=== PATIENT | female | born 1965 | race Caucasian/White ===

== ENCOUNTER 2019-05-31 17:17 | Emergency (ER) | payer BC, OTHER ==
--- OUTSIDE RECORDS SUMMARY | 2019-05-31 17:24 | XMS REPORT | Continuity of Care Document ---
:1965 Author Organization [facility] Address [address], [place] [id number] Phone Care Team Providers Name Role Phone Allen YOUNG, Nghia Unavailable Unavailable Allergies, Adverse Reactions, Alerts Substance Reaction Status Cephalosporins hives (moderate) Active NITROFURANTOIN MACROCRYSTALLINE Active nitrofurantoin Active Penicillins Active Medications Medication Instructions Dosage Effective Dates Status Comments (start - stop) zolpidem 5 mg 1/2 to 1 PO QD as - Active Maximum Daily tablet needed Dose = 1 (one). nortriptyline 50 mg take 3 Capsule by 150 MG - Active capsule oral route every evening ibuprofen 600 mg take 1 tablet by 600 MG - Active tablet oral route 3 times every day with food OTC SUPPLEMENTS parotid pmg, - Active cholachol II, hypothalamus PMG, organic bound mineral, RNA zolpidem 5 mg 1/2 to 1 PO QD as - No Longer Maximum Daily tablet needed Active Dose = 1 (one). Problems Condition Effective Dates Clinical Status Comments (start - stop) Raynaud's syndrome without gangrene Chilblains, initial encounter Fibromyalgia Fibromyalgia Raynaud's syndrome without gangrene Secondary Raynaud's phenomenon without gangrene Systemic involvement of connective tissue Fibromyalgia Chilblains, initial encounter Secondary Raynaud's phenomenon without gangrene Fibromyalgia Fibromyalgia Secondary Raynaud's phenomenon without gangrene Secondary Raynaud's phenomenon without gangrene Chilblains, initial encounter Fibromyalgia Systemic involvement of connective tissue Secondary Raynaud's phenomenon without gangrene Arteritis Arteritis - Active Mapped from [facility] Chronic Conditions table on 06/30/2014 by the ICD9 to SNOMED Bulk Mapping Utility. 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 Onset date 08/26/2013; last addressed on 08/26/2013. Raynaud's disease - Active Mapped from [facility] Chronic Conditions table on 06/30/2014 by the ICD9 to SNOMED Bulk Mapping Utility. The mapped diagnosis code was Raynaud's Syndrome, 443.0, added by Nghia Villa MD, with responsible provider Nghia Villa MD. Onset date 07/30/2013; last addressed on 02/19/2014. Fibromyositis - Active Mapped from [facility] Chronic Conditions table on 08/14/2014 by the ICD9 to SNOMED Bulk Mapping Utility. The mapped diagnosis code was fibromyalgia / myalgia, 729.1, added by Nghia Villa MD, with responsible provider Nghia Villa MD. Onset date 07/24/2012; last addressed on 02/19/2014. Degenerative joint - Active Mapped from [facility] Chronic disease involving Conditions table on multiple joints 06/30/2014 by the ICD9 to SNOMED Bulk Mapping Utility. The mapped diagnosis code was Osteoarthritis, 715.09, added by Nghia Villa MD, with responsible provider Nghia Villa MD. Onset date 07/24/2012; last addressed on 01/29/2013. Procedures Procedure Date No information Results Test Name Date and Time Measure Units Reference Range Abnormal Flag Status Comments No information Advance Directives Directive Yes / No Effective Date File Name No information Encounters Encounter Practice Location Reason(s) Diagnoses Date Provider Providers Description For Visit Copied on Encounter Arthritis Arthritis Mar- Allen YOUNG [facility] [place]. [facility] [address] [facility], [address] [facility], [place], [place], [id number], [id number], [place]. [place] tel:[phone] tel:[phone] Arthritis Arthritis Raynaud's Sep-2 Allen YOUNG [facility] syndrome [place]. Provider: Austin Avila without [address] [facility], [address] [facility] [place], [address] [address], initial [place], [place], [facility] [place], [place], [place], [place], [place], [place], [id number], [id number]. [id number], [place]. tel:[phone] [place] tel:[phone] tel:[phone] ring [id number] Provider: Vicki Lopez, [address] [place] [address], [address]. tel:[phone] Arthritis Arthritis Apr-0 Allen YOUNG [facility] [place]. [facility] [address] [facility], [address] [facility], [place], [place], [place], [id number], [id number], [place]. [place] tel:[phone] tel:[phone] Arthritis Arthritis FibromyalgiaRa Sep-2 Allen YOUNG [facility]ing [facility] [place]. Provider: Austin Avila syndrome [address] [facility], [address] [facility] without [facility] [place] [place], [address] [facility] gangrene [place], N [facility], [place], [place], [place], [place], [place], [place], [id number], [address]. [id number], [place]. tel:[phone] [place] tel:[phone] tel:[phone] ring [phone] Provider: Vicki Lopez, [address] [place] [address], [address]. tel:[phone] Arthritis Arthritis Secondary Sep-1 Allen YOUNG [facility] [place]. Provider: Austin Avila phenomenon [address] [facility], [address] [facility] without [facility] [facility] [place], [address] [facility] gangreneSystem [place], N [facility], ic involvement [place], [place], [place], of connective [place], [place], [place], [place], tissueFibromya [id number], [address]. [id number], lgia [place]. tel:[phone] [place] tel:[phone] tel:[phone] ring [phone] Provider: Vicki Lopez, [address] [place] [address], [address]. tel:[phone] Arthritis Arthritis Chilblains, Allen YOUNG [facility] initial 0 [place]. Provider: Austin Avila encounterSecon [address] [facility], [address] [facility], [place] phenomenon [place], [place], without [place], [address], [place], gangreneFibrom [place], [place], [place], [place], yalgia [id number], [address]. [id number], [place]. tel:[phone] [place] tel:[phone] tel:[phone] ring [phone] Provider: Vicki Lopez, [address] [place] [address], [address]. tel:[phone] Arthritis Arthritis FibromyalgiaSe Allen YOUNG [facility] condary [place]. Provider: Austin Rosado's [address] [facility], [address] [facility] phenomenon [facility], [address] without [place], [place], gangrene [place], [address], [place], [place], [place], [place], [place], [id number], [address]. [id number], [place]. tel:[phone] [place] tel:[phone] tel:[phone] ring [phone] Provider: Vicki Lopez, [address] [place] [address], [address]. tel:[phone] Arthritis Arthritis Secondary Fe Allen YOUNG [facility] [place]. Provider: Austin Avila phenomenon [address] [facility], [address] [facility] without [facility], [address] gangreneChilbl [place], [place], ains, initial [place], [address], [place], [facility] [place], [place], [place], [place], myalgia [id number], [address]. [id number], [place]. tel:[phone] [place] tel:[phone] tel:[phone] ring [id number] Provider: Vicki Lopez, [address] [place] [address], [address]. tel:[phone] Arthritis Arthritis Systemic Nov-0 Allen YOUNG [facility] involvement of [place]. Provider: Austin Avila [facility] [address] [facility], [address] [facility], [address] [place] [address], [facility], [facility], [place], [place], [facility] [place], [place], [place], [place], gangreneArteri [id number], [address]. [id number], [facility] [place]. tel:[phone] tel:[phone] tel:[phone] ring [phone] Provider: Vicki Lopez, [address] [place] [address], [address]. tel:[phone] Arthritis Arthritis Jul-3 Allen YOUNG [facility] [place]. Provider: Austin Avila [address] [facility], [address] [facility], [address] [place] [address], [facility], [place], [place], [place], [place], [place], [place], [place], [id number], [address]. [id number], [place]. tel:[phone] [place] tel:[phone] tel:[phone] ring [phone] Provider: Vicki Lopez, [address] [place] [address], [address]. tel:[phone] Arthritis Arthritis Oct-3 Allen YOUNG [facility] 0 [place]. Provider: Austin Avila [address] [facility], [address] [facility], [address] [place] [address], [facility], [place], [place], [place], [place], [place], [place], [place], [id number], [address]. [id number], [place]. tel:[phone] [place] tel:[phone] tel:[phone] ring [phone] Provider: Vicki Lopez, [address] [place] [address], [address]. tel:[phone] Arthritis Arthritis May-0 Margot Consulting [facility] JUSTIN Wheeler. Provider: [facility] [address] [facility], [address] [facility], [facility], [facility], [place], [place], [place], [place], [place], [id number], [id number]. [id number], [place]. tel:[phone] [place] tel:[phone] tel:[phone] [facility] [phone] Provider: Vicki Lopez, [address] [place] [address], [address]. tel:[phone] Arthritis Arthritis Apr-0 Allen YOUNG Referring [facility] [place]. Provider: [facility] [address] [facility], [address] [facility], [address] [place] [address], [place], [place], [id number], [place], [address]. [id number], [place]. tel:[phone] [place] tel:[phone] tel:[phone] Arthritis Arthritis Oct-0 Allen YOUNG [facility] [place]. Provider: [facility] [address] [facility], [address] [facility], [address] [place] [address], [place], [place], [id number], [place], [address]. [id number], [place]. tel:[phone] [place] tel:[phone] tel:[phone] Arthritis Arthritis Aug-0 Allen YOUNG [facility] [place]. [facility] 1 [address] [facility], 5[address] [facility], [facility], [place], [facility], [place], [place], [place], [id number], [id number], [place]. [place] tel:[phone] tel:[phone] Family History Family Member Diagnosis Age At Onset Father arthritis Paternal grandmother Rheumatoid arthritis Immunizations Vaccine Date Status Comments Influenza, injectable, administered Source: New Immunization Record trivalent, split virus, 4 years and older, Fluvirin Yet to receive Flu vaccine administered Source: New Immunization Record Refused Flu vaccine administered Source: New Immunization Record Never had Zoster administered Source: New Immunization Record Never had a PPV23 administered Source: New Immunization Record Influenza, injectable, pending Source: New Immunization Record trivalent, split virus, 4 years and older, Fluvirin Payers Payer name Insurance type Covered libertarian ID Authorization(s) BCBS No Referral Required BL [id number] [place] [id number] BCBS No Referral Required BL [id number] [place] [id number] BCBS No Referral Required BL [id number] [place] [id number] Social History Type Description Quantity Date Captured Comments Alcohol Use Details Unknown Caffeine Use Details Unknown Tobacco Use Status Unknown Smoking Status Unknown Sex Female Vital Signs Date / Height Weight BMI Pulse Blood Temperature Respiratory Body Head BMI Pulse Inhaled Time: Rate Pressure Rate Surface Circumference percentile Ox Ox Area No information Chief Complaint And Reason For Visit No information Reason For Referral Reason For Referral No information Plan Of Treatment Date Type Action Status Appointment [place] Unknown Immunization Influenza, injectable, trivalent, split virus, 4 ordered years and older, Fluvirin History Of Present Illness Encounter Date Complaint History Of Present Illness No information Functional Status Date Functional Assessment No information Medications Administered Medication Instructions Dosage Effective Dates (start - stop) Status Comments No information Instructions Date Instruction Additional Information Risks/benefits of medications reviewed For sleep, the need to add adequate relaxation, rest and exercise was discussed Patient plan printed and given along with recommendations continue same medication plan call if symptoms worsen Risks/benefits of medications reviewed For sleep, the need to add adequate relaxation, rest and exercise was discussed Patient plan printed and given along with recommendations continue same medication plan call if symptoms worsen call if symptoms worsen avoid cold exposure For sleep, the need to add adequate relaxation, rest and exercise was discussed Patient plan printed and given along with recommendations continue same medication plan avoid cold exposure.as needed hand warmers. add 20mg duloxetine if needed. Risks/benefits of medications reviewed call if symptoms worsen prednisone 5mg 3/d,then taper after improvment Risks/benefits of medications reviewed Recommended further diagnostic tests ordered to clarify diagnostic and treatment plan. Patient plan printed and given along with recommendations please avoid cold exposure with proper layering of clothes Risks/benefits of medications reviewed For sleep, the need to add adequate relaxation, rest and exercise was discussed Patient plan printed and given along with recommendations continue same medication plan call if symptoms worsen Educated regarding diagnosis and treatment options. Patient plan printed and given along with recommendations continue same medication plan call if symptoms worsen For sleep, the need to add adequate relaxation, rest and exercise was discussed continue same medication plan call if symptoms worsen she will activate low-dose prednisone if her lesions become more painful Risks/benefits of medications reviewed For sleep, the need to add adequate relaxation, rest and exercise was discussed Labs ordered to check disease activity. Patient plan printed and given along with recommendations call if symptoms worsen consider plaquenil if worsens. call if symptoms worsen layers of clothing. please increase nortriptyline to 150 mg. 15 mg per day of prednisone for 3 days, then taper, if digit lesions worsen continue same medication plan call if symptoms worsen
--- OUTSIDE RECORDS SUMMARY | 2019-05-31 17:24 | XMS REPORT | Continuity of Care Document ---
:1965 Author Organization [facility] Address [address], [place] [id number] Phone Care Team Providers Name Role Phone [...] gangrene Arteritis Arteritis - Active Mapped from [facility] Chronic Conditions table on 06/30/2014 by the ICD9 to SNOMED Bulk Mapping Utility. 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 Onset date 08/26/2013; last addressed on 08/26/2013. Raynaud's disease - Active Mapped from [facility] Chronic Conditions table on 06/30/2014 by the ICD9 to SNOMED Bulk Mapping Utility. The mapped diagnosis code was Raynaud's Syndrome, 443.0, added by Nghia Villa MD, with responsible provider Nghia Villa MD. Onset date 07/30/2013; last addressed on 02/19/2014. Fibromyositis - Active Mapped from [facility] Chronic Conditions table on 08/14/2014 by the ICD9 to SNOMED Bulk Mapping Utility. The mapped diagnosis code was fibromyalgia / myalgia, 729.1, added by Nghia Villa MD, with responsible provider Nghia Villa MD. Onset date 07/24/2012; last addressed on 02/19/2014. Degenerative joint - Active Mapped from [facility] Chronic disease involving Conditions table on multiple [...] on Encounter Arthritis Arthritis Mar- Allen YOUNG [facility] [place]. [facility] 9 [address] [facility], 5[address] [facility] [place], [place], [place], [place], [id number], [id number], [place]. [place] tel:[phone] tel:[phone] Arthritis Arthritis Nov-2 Allen YOUNG [facility] [place]. [facility] 9 5794 PLLC, 5794 PLLC [facility], [place], [place], [place], [place], [place], [id number], [id number], [place]. [place] tel:[phone] tel:[phone] Arthritis Arthritis Raynaud's Sep-2 Allen YOUNG Consulting [facility] syndrome [place]. Provider: Austin Avila without 9 5794 Rahul [facility], 5794 PLLC gangreneChilbl [facility] [place], 74 [facility], [facility], N [facility], , [place], [place], [place]algia [place], [place], [place], [place], [id number], [address]. [id number], [place]. tel:[phone] [place] tel:[phone] tel:[phone] ring [phone] Provider: Vicki Lopez, [address] [place] [address], [address]. tel:[phone] Arthritis Arthritis Apr-0 Allen YOUNG [facility] [place] 9 5794 PLLC, 5794 PLLC [facility], [place], [place], [place], [place], [id number], [id number], [place]. [place] tel:[phone] tel:[phone] Arthritis Arthritis FibromyalgiaRa Sep-2 Allen YOUNG Consulting [facility] [place]. Provider: Austin Avila syndrome 8 5794 Rahul PLLC, 5794 PLLC without [facility] [place], 74 [facility], N [facility], [place], Street, [place], [place], [place], [place], [place], [id number], [address]. [id number], [place]. tel:[phone] [place] tel:[phone] tel:[phone] ring [phone] Provider: Vicki Lopez, [address] [place] [address], [address]. tel:[phone] Arthritis Arthritis Secondary Sep- Allen YOUNG Consulting [facility] [place]. Provider: Austin Avila phenomenon 7 5794 Rahul PLLC, 5794 PLLC without [facility], [address] [facility] [facility]reneSystem [place], N [place], ic involvement [place], Street, [place], of connective [place], [place], [place], [place], tissueFibromya [id number], [address]. [id number], [place]. tel:[phone] [place] tel:[phone] tel:[phone] ring [phone] Provider: Vicki Lopez, [address] [place] [address], [address]. tel:[phone] Arthritis Arthritis Chilblains, Allen YOUNG Consulting [facility] initial 0 [place]. Provider: Austin Avila encounterSecon 7 5794 Rahul PLLC, 5794 PLLC ana [facility] [place], [address] phenomenon [place], [address] [place], without [place], Street, [place], gangreneFibrom [place], [place], [place], [place], yalgia [id number], [address]. [id number], [place]. tel:[phone] [place] tel:[phone] tel:[phone] ring [phone] Provider: Vicki Lopez, [address] [place] [address], [address]. tel:[phone] Arthritis Arthritis FibromyalgiaSe Allen YOUNG Consulting [facility] [place]. Provider: Austin Rosado's 6 5794 Rahul PLLC, 5794 PLLC phenomenon [facility] [place], [address] without [place], [place], gangrene [place], Street, [place], [place], [place], [place], [place], [id number], [address]. [id number], [place]. tel:[phone] [place] tel:[phone] tel:[phone] ring [phone] Provider: Vicki Lopez, [address] [place] [address], [address]. tel:[phone] Arthritis Arthritis Secondary May- Allen YOUNG Consulting [facility] [place]. Provider: Austin Avila phenomenon 6 5794 Rahul PLLC, 5794 PLLC without [facility] [place], 74 [facility], N [facility], ains, initial [place], Street, [place], encounterFibro [place], [place], [place], [place] [id number], [address]. [id number], [place]. tel:[phone] [place] tel:[phone] tel:[phone] ring [phone] Provider: Vicki Lopez, [address] [place] [address], [address]. tel:[phone] Arthritis Arthritis Systemic Nov- Allen YOUNG Consulting [facility] [place]. Provider: Austin Avila [facility] 5 5794 Rahul PLLC, 5794 PLLC tissueSecondar [facility] [place], 74 [facility] y [facility], [facility], [facility], [place], [place], without [place], [place], [place], [place], gangreneArteri [id number], [address]. [id number], [facility] [place]. tel:[phone] [place] tel:[phone] tel:[phone] ring [phone] Provider: Vicki Lopez, [address] [place] [address], [address]. tel:[phone] Arthritis Arthritis Apr-3 Allen YOUNG Consulting [facility] [place]. Provider: Austin Avila 5 5794 Rahul PLLC, 5794 PLLC [facility] [place], [address] [place] [address], [facility], [place], [place], [place], [place], [place], [place], [place], [id number], [address]. [id number], [place]. tel:[phone] [place] tel:[phone] tel:[phone] ring [phone] Provider: Vicki Lopez, [address] [place] [address], [address]. tel:[phone] Arthritis Arthritis Oct-3 Allen YOUNG Consulting [facility] [place]. Provider: Austin Avila 4 5794 Rahul PLLC, 5794 PLLC [facility] [place], [address] [place] [address], [facility], [facility], [place], [place], [place], [place], [id number], [address]. [id number], [place]. tel:[phone] [place] tel:[phone] tel:[phone] ring [phone] Provider: Vicki Lopez, [address] [place] [address], [address]. tel:[phone] Arthritis Arthritis August-0 Margot Consulting [facility] JUSTIN Wheeler. Provider: Austin Avila 4 5794 Rahul PLLC, 5794 PLLC [facility] [place], [address] [place] [address], [facility], [facility], [place], [place], [place], [place], [id number], [address]. [id number], [place]. tel:[phone] [place] tel:[phone] tel:[phone] ring [phone] Provider: Vicki Lopez, [address] [place] [address], [address]. tel:[phone] Arthritis Arthritis Jul-0 Allen YOUNG Referring [facility] [place]. Provider: Austin Avila 4 5794 Vicki PLLC, 5794 PLLC [facility], [address] [place] [address], [place], [place], [id number], [place], [address]. [id number], [place]. tel:[phone] [place] tel:[phone] tel:[phone] Arthritis Arthritis Jan-0 Allen YOUNG Referring [facility] [place]. Provider: Austin Avila 3 5794 Vicki PLLC, 5794 PLLC [facility], [address] [place] [address], [place], [place], [id number], [place], [address]. [id number], [place]. tel:[phone] tel:[phone] tel:[phone] Arthritis Arthritis Allen YOUNG [facility] [place]. [facility] 1 5794 [facility], 5[address] [facility], [place], [place], [place], [place], [place], [id number], [id number], [place]. US tel:[phone] tel:[phone] Family History Family Member Diagnosis Age At [...] Fluvirin Payers Payer name Insurance type Covered green party ID Authorization(s) BCBS No Referral Required BL [id number] Jaroso CI [id number] BCBS No Referral Required BL [id number] Jaroso CI [id number] BCBS No Referral Required BL [id number] Jaroso CI [id number] Social History Type Description Quantity Date Captured Comments Sex Female Vital Signs Date / Height Weight BMI Pulse Blood Temperature Respiratory Body Head BMI Pulse Inhaled Time: Rate Pressure Rate Surface Circumference percentile Ox Ox Area No information Chief Complaint And Reason For Visit No information Reason For Referral Reason For Referral No information Plan Of Treatment Date Type Action Status Appointment Inna Marina BOOKED Unknown Immunization Influenza, injectable, trivalent, split virus, [...] along with recommendations continue same medication plan Risks/benefits of medications reviewed Recommended further diagnostic tests ordered to clarify diagnostic and treatment plan. Patient plan printed and given along with recommendations avoid cold exposure.as needed hand warmers. add 20mg duloxetine if needed. Risks/benefits of medications reviewed call if symptoms worsen prednisone 5mg 3/d,then taper after improvment please avoid cold exposure with proper layering [...]
--- OUTSIDE RECORDS SUMMARY | 2019-05-31 17:24 | XMS REPORT | Continuity of Care Document ---
:1965 Author Organization [facility] Address [address] [place], [place] [id number] Phone Care Team Providers Name Role Phone Liam Frost PA-C Unavailable Unavailable Allergies, Adverse Reactions, Alerts Substance Reaction Status Cephalosporins hives (moderate) Active NITROFURANTOIN MACROCRYSTALLINE Active nitrofurantoin Active Penicillins Active Medications Medication Instructions Dosage Effective Dates Status Comments (start - stop) zolpidem 5 mg tablet 1/2 to 1 PO QD as - Active Maximum Daily needed Dose = 1 (one). nortriptyline 50 mg take 3 Capsule by 150 MG - Active capsule oral route every evening ibuprofen 600 mg take 1 tablet by 600 MG - Active tablet oral route 3 times every day with food OTC SUPPLEMENTS parotid pmg, - Active cholachol II, hypothalamus PMG, organic bound mineral, RNA Problems Condition Effective Dates Clinical Status Comments [...] gangrene Arteritis Arteritis - Active Mapped from [facility] Chronic Conditions table on 06/30/2014 by the ICD9 to SNOMED Bulk Mapping Utility. 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 Onset date 08/26/2013; last addressed on 08/26/2013. Raynaud's disease - Active Mapped from [facility] Chronic Conditions table on 06/30/2014 by the ICD9 to SNOMED Bulk Mapping Utility. The mapped diagnosis code was Raynaud's Syndrome, 443.0, added by Nghia Villa MD, with responsible provider Nghia Villa MD. Onset date 07/30/2013; last addressed on 02/19/2014. Fibromyositis - Active Mapped from [facility] Chronic Conditions table on 08/14/2014 by the ICD9 to SNOMED Bulk Mapping Utility. The mapped diagnosis code was fibromyalgia / myalgia, 729.1, added by Nghia Villa MD, with responsible provider Nghia Villa MD. Onset date 07/24/2012; last addressed on 02/19/2014. Degenerative joint - Active Mapped from [facility] Chronic disease involving Conditions table on [...] For Visit Copied on Encounter Arthritis Arthritis [facility] 0- JUSTIN Wheeler. Associates Associates 0 5794 PLLC, 5794 PLLC [facility], [place], [place], [place], [place], [id number], [id number], [place]. [place] tel:[phone] tel:[phone] Arthritis Arthritis Allen YOUNG [facility] Health 2- Patrick. [facility] 9 5794 PLLC, 5[address] PLLC [facility], [place], [place], [place], [place], [id number], [id number], [place]. [place] tel:[phone] tel:[phone] Arthritis Arthritis Raynaud's Sep-[address] [facility] syndrome [place]. Provider: Austin Avila without 9 5794 Rahul PLLC, 5794 PLLC gangreneChilbl [facility], [facility], [facility], N [facility], [facility]FiA[facility], [place], [place], myalgia [place], [place], [place], [place], [id number], [address]. [id number], [place]. tel:[phone] [place] tel:[phone] tel:[phone] ring [phone] Provider: Vicki Lopez, [address] [place] [address], [address]. tel:[phone] Arthritis Arthritis FibromyalgiaRa Sep-2 Allen YOUNG Consulting [facility] [place]. Provider: Austin Avila syndrome 8 5794 Rahul PLLC, 5794 PLLC without [facility], [address] [place] [address], [facility], [place], [place], [place], [place], [place], [place], [place], [id number], [address]. [id number], [place]. tel:[phone] [place] tel:[phone] tel:[phone] ring [phone] Provider: Vicki Lopez, [address] [place] [address], [address]. tel:[phone] Arthritis Arthritis Secondary Sep-1 Allen YOUNG Consulting [facility] [place]. Provider: Austin Avila phenomenon 7 5794 Rahul PLLC, 5794 PLLC without [facility], 74 [facility], N [facility], ic involvement [place], Street, [place], of connective [place], [place], [place], [place], tissueFibromya [id number], [address]. [id number], lgia [place]. tel:[phone] [place] tel:[phone] tel:[phone] ring [phone] Provider: Vicki Lopez, [address] [place] [address], [address]. tel:[phone] Arthritis Arthritis Chilblains, Allen YOUNG Consulting [facility] initial 0 [place]. Provider: Austin Avila encounterSecon 7 5794 Rahul PLLC, 5794 PLLC ana [facility]on[facility], 74 [facility] phenomenon [place], [place], without [place], Street, [place], gangreneFibrom [place], [place], [place], [place], yalgia [id number], [address]. [id number], [place]. tel:[phone] [place] tel:[phone] tel:[phone] ring [phone] Provider: Vicki Lopez, [address] [place] [address], [address]. tel:[phone] Arthritis Arthritis FibromyalgiaSe Nov Allen YOUNG Consulting [facility] condary [place]. Provider: Austin Rosado's 6 5794 Rahul PLLC, 5794 PLLC phenomenon [facility], 74 [facility] without [place], [place], gangrene [place], Street, [place], [place], [place], [place], [place], [id number], [address]. [id number], [place]. tel:[phone] [place] tel:[phone] tel:[phone] ring [phone] Provider: Vicki Lopez, [address] [place] [address], [address]. tel:[phone] Arthritis Arthritis Secondary Fe Allen YOUNG Consulting [facility] [place]. Provider: Austin Avila phenomenon 6 5794 Rahul PLLC, 5794 PLLC without [facility], 74 [facility] gangreneChilbl [place], N [place], ains, initial [place], Street, [place], encounterFibro [place], [place], [place], [place], [place] [id number], [address]. [id number], [place]. tel:[phone] [place] tel:[phone] tel:[phone] ring [phone] Provider: Vicki Lopez, [address] [place] [address], [address]. tel:[phone] Arthritis Arthritis Systemic Nov-[address] [facility] involvement of [place]. Provider: Austin Avila [facility] 5 5794 Rahul PLLC, 5794 PLLC [facility], [address] [place] [address], [facility], [facility], [place], without [place], [place], [place], [place], [facility] [id number], [address]. [id number], [facility] [place]. tel:[phone] [place] tel:[phone] tel:[phone] ring [phone] Provider: Vicki Lopez, [address] [place] [address], [address]. tel:[phone] Arthritis Arthritis Jul-[address] [facility] 0 [place]. Provider: Austin Avila 5 5794 Rahul PLLC, 5794 PLLC [facility], [address] [place] [address], [facility], [place], [place], [place], [place], [place], [place], [id number], [address]. [id number], [place]. tel:[phone] [place] tel:[phone] tel:[phone] ring [phone] Provider: Vicki Lopez, [address] [place] [address], [address]. tel:[phone] Arthritis Arthritis Jan-[address] [facility] 0 [place]. Provider: Austin Avila 4 5794 Rahul PLLC, 5794 PLLC [facility], [address] [place] [address], [facility], [place], [place], [place], [place], [place], [place], [place], [id number], [address]. [id number], [place]. tel:[phone] [place] tel:[phone] tel:[phone] ring [phone] Provider: Vicki Lopez, [address] [place] [address], [address]. tel:[phone] Arthritis Arthritis August-0 Margot [facility] JUSTIN Wheeler. Provider: Associates Associates 4 5794 Rahul PLLC, 5794 PLLC [facility], 74 [facility], N [facility], [facility], [place], [place], [place], [place], [id number], [address]. [id number], [place]. tel:[phone] [place] tel:[phone] tel:[phone] ring [phone] Provider: Vicki Lopez, [address] [place] [address], [address]. tel:[phone] Arthritis Arthritis Jul-0 Allen YOUNG [facility] [place]. Provider: Associates Associates 4 5794 Vicki PLLC, 5794 PLLC [facility], [address] [place] [address], [place], [place], [place], [place], [id number], [place], [address]. [id number], [place]. tel:[phone] [place] tel:[phone] tel:[phone] Arthritis Arthritis Allen YOUNG [facility] [place]. Provider: Associates Associates 3 5794 Vicki PLLC, 5794 PLLC [facility], [address] [place] [address], [place], [place], [place], [place], [id number], [place], [address]. [id number], [place]. tel:[phone] [place] tel:[phone] tel:[phone] Arthritis Arthritis Nov-[address] [facility] [place]. Associates [facility] 1 5794 PLLC, 5794 PLLC [facility], [place], [place], [place], [place], [id number], [id number], [place]. [place] tel:[phone] tel:[phone] Family History Family Member Diagnosis Age At [...] Fluvirin Payers Payer name Insurance type Covered republican ID Authorization(s) BCBS No Referral Required BL [id number] Athena CI [id number] BCBS No Referral Required BL [id number] Athena CI [id number] BCBS No Referral Required BL [id number] Athena CI [id number] Social History Type Description Quantity Date Captured [...] No information Instructions Date Instruction Additional Information continue same medication plan call if symptoms worsen Risks/benefits of medications reviewed For sleep, the need to add adequate relaxation, rest and exercise was discussed Patient plan printed and given along with recommendations Risks/benefits of medications reviewed For sleep, the [...] along with recommendations continue same medication plan prednisone 5mg 3/d,then taper after improvment call if symptoms worsen Risks/benefits of medications reviewed add 20mg duloxetine if needed. avoid cold exposure.as needed hand warmers. Risks/benefits of medications reviewed Recommended further diagnostic tests ordered to clarify diagnostic and treatment plan. Patient plan printed and given along with recommendations Patient plan printed and given along with recommendations continue same medication plan call if symptoms worsen For sleep, the need to add adequate relaxation, rest and exercise was discussed Risks/benefits of medications reviewed please avoid cold exposure with proper layering of clothes she will activate low-dose prednisone if her lesions become more painful Educated regarding diagnosis and treatment options. Patient plan printed and given along with recommendations continue same medication plan call if symptoms worsen For sleep, the need to add adequate relaxation, rest and exercise was discussed continue same medication plan call if symptoms worsen For sleep, the need to add adequate relaxation, rest and exercise was discussed Risks/benefits of medications reviewed Labs ordered to check disease activity. Patient [...]
--- OUTSIDE RECORDS SUMMARY | 2019-05-31 17:24 | XMS REPORT | Continuity of Care Document ---
:1965 External Reference #:[id number] Author Name Vicki Jamison M.D. (transmitted by agent of provider Leda Morse) Address [address] [place] [address] Care Team Providers Name Role Phone Vicki Lpoez MD - Family Care Team Information Manager Clinical Research [phone] Medicine Nghia Villa M.D. - Care Team Information Manager Clinical Research [phone] Rheumatology Problems Active Problems Provider Date Hyperlipidemia Vicki Jamison M.D. Onset: 05/15/2019 Social History Type Date Description Comments Sex Unknown ETOH Use Occasionally consumes alcohol ETOH Use consumes 2-3 glasses of sunday and sunday wine per week Tobacco Use Start: Unknown Patient has never smoked Recreational Drug Use Denies Drug Use Smoking Status Reviewed: 05/15/19 Patient has never smoked Exercise Type/Frequency Exercises regularly [employer] 4 times a week for 1 hour Allergies, Adverse Reactions, Alerts Active Allergies Reaction Severity Comments Date Amlodipine 04/24/2019 Cephalexin 04/24/2019 Penicillin 04/24/2019 Macrobid 04/24/2019 Medications Active Medications SIG Qnty Indications Ordering Provider Date Nortriptyline HCL take 3 caps by Unknown 50mg mouth at night. Capsules Zolpidem Tartrate 1/2-1 by mouth Unknown 5mg tablet at bedtime Tablets as needed for insomnia Rosuvastatin Calcium 1 by mouth every Unknown 5mg day Tablets Immunizations Description No Information Available Vital Signs Date Vital Result Comment 05/15/2019 1:59pm Height 64 inches 5'4" Weight 151.00 lb w/out shoes Heart Rate 96 /min L radial, regular BP Systolic 120 mmHg R arm, regular BP Diastolic 92 mmHg R arm, regular BP Systolic Sitting 120 mmHg L arm, regular BP Diastolic Sitting 90 mmHg L arm, regular BP Systolic Standing 110 mmHg L arm, regular BP Diastolic Standing 82 mmHg L arm, regular Respiratory Rate 16 /min BMI (Body Mass Index) 25.9 kg/m2 05/15/2019 1:55pm Height 64 inches 5'4" Weight 151.00 lb with out shoes BMI (Body Mass Index) 25.9 kg/m2 Ejection Fraction 60% date 03/27/19 ECHO Results Description No Information Available Procedures Date Code Description Status 05/15/2019 20291 EKG Tracing & Interpretation Completed Medical Devices Description No Information Available Encounters Description No Information Available Assessments Date Code Description Provider 05/15/2019 R00.0 Tachycardia, unspecified Vicki Jamison M.D. 05/15/2019 R06.83 Snoring Vicki Jamison M.D. 05/15/2019 R07.9 Chest pain, unspecified Vicki Jamison M.D. 05/15/2019 E78.5 Hyperlipidemia, unspecified Vicki Jamison M.D. 05/15/2019 J45.909 Unspecified asthma, uncomplicated Vicki Jamison M.D. Plan of Treatment 05/15/2019 - Vicki Jamison M.D.R00.0 Tachycardia, unspecifiedComments: Nortriptyline could be a factor.Follow up:OV after sleep study.Recommendations: Stay hydrated. If able to coordinate lower dose, trial. Send us ingredients in the shake you still take.R06.83 SnoringNew Orders:Sleep Study, Ordered: Comments:I would like to r/o sleep apnea or other sleep disorder.Referral: Lelia Baker MD, Pulmonary IoknxexuA22.9 Chest pain, unspecifiedComments:Ca+ + score although not perfect is still reassuring, mild plaque doesn't bring on your symptoms typically.This does support staying on the statin for primary prevention.Stress reassuring that no significant lessions accounting for your chest pain.Substernal CP could be reflux (GERD).E78.5 Hyperlipidemia, unspecifiedComments:On GsosrpJ65.909 Unspecified asthma, uncomplicated Functional Status Description No Information Available Mental Status Description No Information Available Referrals Refer to Reason for Referral Status Appt Date Lelia Baker MD Hx asthma, sndouglas ng, racing heart. Update Sent asthma, ? [facility] [address] [address] [phone]
--- OUTSIDE RECORDS SUMMARY | 2019-05-31 17:24 | XMS REPORT | Continuity of Care Document ---
:1965 External Reference #:[id number] Author Name Vicki Lopez MD Address [address] [place] [id number] Care Team Providers Name Role Phone Juancho Sykes MD - Gastroenterology Care Team Information Fire Extinguisher Repairer Inspector León Ribeiro MD - Gastroenterology Care Team Information Fire Extinguisher Repairer Inspector Vicki Jamison Care Team Information Fire Extinguisher Repairer Inspector [phone] Problems Active Problems Provider Date Paroxysmal supraventricular tachycardia Vicki Lopez MD Onset: 2010 Family history of osteoporosis Vicki Lopez MD Onset: 07/25/2010 Vitamin D deficiency Vicki Lopez MD Onset: 07/25/2010 Raynaud's disease Vicki Lopez MD Onset: 07/19/2009 Irritable bowel syndrome Vicki Lopez MD Onset: 06/30/2005 Allergic asthma without status asthmaticus Vicki Lopez MD Onset: 2005 Disorder of lumbar disc Vicki Lopez MD Onset: 06/30/2005 Atherosclerosis of coronary artery without Vicki Lopez MD Onset: 2018 angina pectoris Cardiomyopathy, unspecified Vicki Lopez MD Onset: 04/02/2019 Mixed hyperlipidemia Vicki Lopez MD Onset: 04/02/2019 Fibromyalgia Vicki Lopez MD Onset: 02/27/2019 Family history of ischemic heart disease and Vicki Lopez MD Onset: other diseases of the circulatory system Social History Type Date Description Comments Sex Unknown ETOH Use Occasionally consumes alcohol Tobacco Use Start: Unknown Patient has never smoked Recreational Drug Use Denies Drug Use Smoking Status Reviewed: 02/27/19 Patient has never smoked Exercise Type/Frequency 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; Allergies, Adverse Reactions, Alerts Active Allergies Reaction Severity Comments Date Amlodipine Urticaria 08/22/2013 Cephalexin blisters and joint aches 08/04/2013 Penicillin hives 09/11/2007 Macrobid hospitalized 06/30/2005 Medications Active Medications SIG Qnty Indications Ordering Provider Date Aspirin Childrens 1 by mouth 90units E78.2 Vicki Lopez, 04/02/2019 81mg every day with Chewtabs food I25.10 Rosuvastatin Calcium 1 by mouth every 30tabs E78.2 Vicki Lopez MD 5mg day Tablets I25.10 Nortriptyline HCL 3 po qhs M79.7 Nghia Villa MD 12/05/2010 50mg Capsules Zolpidem Tartrate 1/2 po qhs M79.7 Nghia Villa MD 5mg Tablets Immunizations CPT Code Status Date Vaccine Reaction Lot # [id number] Given 03/20/2019 Flu Vaccine NOS 04339 Given 01/24/2016 Influenza Virus Vaccine,Quadrivalent,Split,Preserv Free, 0.5mL,[place] [address] Given 02/02/2011 Afluria Or Fluvirin Flu Vac Intramuscular 69761 Given 02/21/2005 Afluria Or Fluvirin Flu Vac Intramuscular 91361 Given 04/23/1992 Tetanus And Diptheria Toxoid 7 Years And Older Preserv Free 48237 Refused 04/02/2019 Shingrix (Shingles) Zoster Vaccine aware can get at harmacy HZV, Recombinant, Subunit, Adj 57394 Refused 02/27/2019 Tdap (Adacel) Ages 7 And Above Only 62302 Refused 02/27/2019 Fluzone Highdose Age 65 And Over aware can get at Preservative & Antibiotic Free pharmacy` 54534 Refused 07/21/2016 Pneumococcal 23 Immunization Adult Or Immunosuppressed Patient 62137 Refused 07/21/2016 Tdap (Adacel) Ages 7 And Above Only Vital Signs Date Vital Result Comment 04/02/2019 9:19am Weight 152.00 lb Heart Rate 80 /min BP Systolic 138 mmHg BP Diastolic 72 mmHg Respiratory Rate 18 /min Height 64.5 inches 5'4.50" BMI (Body Mass Index) 25.7 kg/m2 02/27/2019 8:49am Weight 149.00 lb Heart Rate 111 /min BP Systolic 130 mmHg BP Diastolic 74 mmHg Respiratory Rate 16 /min Height 64.5 inches 5'4.50" O2 % BldC Oximetry 97 % ra BMI (Body Mass Index) 25.2 kg/m2 Results Test Acquired Date Facility Test Result H/L Range Note Laboratory test finding 02/27/2019 [facility] TSH 0.91 uIU/mL 0.35-4.94 1 Free T4 0.93 ng/dL 0.70-1.48 CBC with Auto Diff-fcmg 02/27/2019 [facility] WBC 5.2 K/uL 4.1-11.0 RBC 4.64 M/uL 4.00-5.40 Hemoglobin 14.2 gm/dL 12.0-16.0 Hematocrit 41.8 % 36.0-47.0 MCV 90.0 fL 80.0-97.0 MCH 30.6 pg 27.0-32.0 MCHC 34.0 g/dL 32.0-36.0 RDW 12.5 % 11.5-14.5 PLT Count 320 K/ul 140-400 MPV 6.7 FL Low 7.1-10.7 Neutrophil 55.0 % 35.0-75.0 Lymphocyte 31.7 % 16.0-52.0 Monocyte 8.7 % 2.0-10.0 Eosinophil 3.5 % 0.0-5.0 Basophil 1.1 % 0.0-4.0 Abs Neutrophils 2.9 K/uL 2.1-8.0 Abs Lymphocytes 1.6 K/uL 0.8-5.5 Abs Monocytes 0.4 K/uL 0.1-1.0 Abs Eosinophils 0.2 K/uL 0.0-0.5 Abs Basophils 0.1 K/uL 0.0-0.3 Comprehensive Met Panel-[facility]G 02/27/2019 [facility] Sodium 139 mmol/L 135- 146 2 Potassium 4.6 mmol/L 3.5-5.2 Chloride# 102 mmol/L 97-110 3 Carbon Dioxide 29 mmol/L 24-34 Calcium 9.6 mg/dL 8.5-10.5 4 Glucose 90 mg/dL 70-105 BUN 24 mg/dL 6-26 Creatinine 0.9 mg/dL 0.5-1.4 Total Protein 7.1 g/dL 6.0-8.0 Albumin 4.7 g/dL 3.6-4.9 Globulin 2.4 g/dL 2.0-3.5 A/G Ratio 2.0 Ratio 1.0-2.2 Total Bilirubin 0.3 mg/dL 0.1-1.3 Alkaline Phosphatase 74 U/L 24-140 Alt 19 U/L 3-42 Ast 21 U/L 8-42 Anion Gap 8 mmol/L 5-15 5 Female Egfr 78 >60 6 Male Egfr 99 >60 7 Lipid 02/27/2019 [facility] Cholesterol 225 mg/dL High 50-199 Triglycerides 191 mg/dL 30-200 HDL 63 mg/dL 35-85 8 Chol/ HDL Ratio 3.6 ratio Low 3.7-5.6 VLDL 38 mg/dL High 2-29 LDL (Calc) 124 mg/dL High 20-99 9 Laboratory test 02/27/2019 [facility] Hepatitis C NON REACTIVE Non Reactive 10 finding Virus Antibody S/CORatio(Michael 1 and peanut butter today letter, last food at 730, shake of protein isogenics with banana 2 Updated reference range on new analyzer 3 Updated reference range on new analyzer 4 Updated reference range 08-21-2018 5 Updated Reference Range 6 Concerning GFR Guidelines for Americans: Normal function or mild renal disease, if clinically at risk: >/= 60 mL/min Moderately decreased: 30-59 Severely decreased: 15-29 Renal failure: <15 There is reduced accuracy above 60ml/min/1.73 m squared, but the numeric value may be clinically useful in the near 60 range 7 Concerning GFR Guidelines: Normal function or mild renal disease, if clinically at risk: >/= 60 mL/min Moderately decreased: 30-59 Severely decreased: 15-29 Renal failure: <15 There is reduced accuracy above 60ml/min/1.73 m squared, but the numeric value may be clinically useful in the near 60 range Glomerular Filtration Rate (GFR) is estimated based on the CKD-EPI equation, which assumes a steady state for creatinine as recommended by the National Kidney Disease Education Program in conjunction with the National Institutes of Health and the National Kidney Foundation. Clinical conditions in which it may be necessary to measure GFR by using clearance methods include extremes of age and body size, severe malnutrition or obesity, diseases of skeletal muscle, paraplegia or quadriplegia, vegetarian diet, rapidly changing kidney function, and calculation of the dose of potentially toxic drugs that are excreted by the kidneys. 8 Per NCEP ATP III Guidelines: Results lower than 40 mg/dL are suggestive of increased risk for coronary artery disease. Results > or = to 60 mg/dL are considered a negative risk factor. 9 Per NCEP ATP III Guidelines: Normal Population <130 Patients with medical conditions: CHD/DM Optimal: <100 Borderline high: 130-159 High: 160-189 Very high: >189 10 S/CO Ratio >/=1.0 is REACTIVE. S/CO <5.0 is Low Reactive. S/CO >/= 5.0 is High Reactive. Effective Dec 15, 2016 all anti-HCV reactive samples are sent for quantitative PCR confirmation. Procedures Date Code Description Status 04/02/2019 09712 Brief Emotional/Behav Assessment W/ Scoring Doc Per Completed Standard Inst 02/27/2019 99845 Electrocardiogram Complete Completed 04/03/2018 04089569 Mammogram Completed 12/05/2016 11318443 Colonoscopy Completed Medical Devices Description No Information Available Encounters Type Date Location Provider Dx Diagnosis Office Visit 02/27/2019 [facility] Vicki Lopez, R00.0 Tachycardia, 9:00a unspecified I51.7 Cardiomegaly R07.9 Chest pain, unspecified Z82.49 Family hx of ischem heart dis and oth dis of the circ sys Z00.01 Encounter for general adult medical exam w abnormal findings M79.7 Fibromyalgia I73.00 Raynaud's syndrome without gangrene Z20.2 Contact w and exposure to infect w a sexl mode of transmiss E04.9 Nontoxic goiter, unspecified Z12.31 Encntr screen mammogram for malignant neoplasm of breast Z12.11 Encounter for screening for malignant neoplasm of colon F43.20 Adjustment disorder, unspecified Z68.25 Body mass index (BMI) 25.0-25.9, adult Assessments Date Code Description Provider 04/02/2019 R00.0 Tachycardia, unspecified Vicki Lopez MD 04/02/2019 I51.7 Cardiomegaly Vicki Lopez MD 04/02/2019 I42.9 Cardiomyopathy, unspecified Vicki Lopez MD 04/02/2019 R07.9 Chest pain, unspecified Vicki Lopez MD 04/02/2019 I25.10 Atherosclerotic heart disease of [place] Vicki Lopez MD coronary artery without angina pectoris 04/02/2019 E04.9 Nontoxic goiter, unspecified Vicki Lopez MD 04/02/2019 E78.2 Mixed hyperlipidemia Vicki Lopez MD 04/02/2019 F41.9 Anxiety disorder, unspecified Vicki Lopez MD 04/02/2019 Z68.25 Body mass index (BMI) 25.0-25.9, adult Vicki Lopez MD 02/27/2019 R00.0 Tachycardia, unspecified Vicki Lopez MD 02/27/2019 R00.0 Tachycardia, unspecified Vicki Lopez MD 02/27/2019 Z82.49 Family history of ischemic heart disease and Vicki Lopez MD other diseases of the circulatory system 02/27/2019 I51.7 Cardiomegaly Vicki Lopez MD 02/27/2019 Z20.2 Contact with and (suspected) exposure to Vicki Lopez MD infections with a predominantly sexual mode of transmission 02/27/2019 R07.9 Chest pain, unspecified Vicki Lopez MD 02/27/2019 Z82.49 Family history of ischemic heart disease and Vicki Lopez MD other diseases of the circulatory system 02/27/2019 Z00.01 Encounter for general adult medical Vicki Lopez MD examination with abnormal findings 02/27/2019 M79.7 Fibromyalgia Vicki Lopez MD 02/27/2019 I73.00 Raynaud's syndrome without gangrene Vicki Lopez MD 02/27/2019 Z20.2 Contact with and (suspected) exposure to Vicki Lopez MD infections with a predominantly sexual mode of transmission 02/27/2019 E04.9 Nontoxic goiter, ojnathanified Vicki Lopez MD 02/27/2019 Z12.31 Encounter for screening mammogram for Vicki Lopez MD malignant neoplasm of breast 02/27/2019 Z12.11 Encounter for screening for malignant neoplasm Vicki Lopez MD of colon 02/27/2019 F43.20 Adjustment disorder, unspecified Vicki Lopez MD 02/27/2019 R00.0 Tachycardia, unspecified Schedule, Laboratory 02/27/2019 Z68.25 Body mass index (BMI) 25.0-25.9, adult Vicki Lopez MD 02/27/2019 Z82.49 Family history of ischemic heart disease and Schedule, Laboratory other diseases of the circulatory system 02/27/2019 Z20.2 Contact with and (suspected) exposure to Schedule, Laboratory infections with a predominantly sexual mode of transmission 02/27/2019 R00.0 Tachycardia, unspecified [facility] 02/27/2019 Z82.49 Family hx of ischem heart dis and oth dis of [facility] the circ sys 02/27/2019 Z20.2 Contact w and exposure to infect w a sexl mode [facility] of transmiss Plan of Treatment Future Appointment(s):05/09/2019 3:10 pm - Schedule, Laboratory at [facility]2019 8:30 am - Vicki Lopez MD at [facility]04/02/2019 - Vicki Lopez, MDR00.0 Tachycardia, unspecifiedComments:improved on arrival, with exam hr is back up but also discussing important issues she is not sure when it got better no sxsavoid supplements, standard vitamins should be ok.Referral:Vicki Jamison, Follow up:cardiology consult; next visit in 6 week fu new statins, CARLY nonfasting labs 5 days uvtwoF25.7 CardiomegalyComments:ekg suggested right and left atrial enlargementecho done, showed possibly proximal septal hypertrophy, and grade 1 diastolic dysfunctionstress test done and very normal, very reassuring, normal ventricular function. Recommend: routine exercise, recheck in 1 year to monitor septal hypertrophy. May be an more stiff athletic heart, functions well on stress testing. Recheck in 1 year to be certain. Offered cardiology consult consider acei/arb once statins are onboard and vftzxfS61.9 Cardiomyopathy, unspecifiedComments:discussed cardiomyopathydiscussed mild 1.5 cm prox septal hypertrophy with grade 1 diastolic dysfunctionnormal function with stress testing, reassuring. recheck echo in 1 year referral to cardiologyReferral:Vicki Jamison,R07.9 Chest pain, unspecifiedComments:pt with persistent chest pressurereassuring stress echobut has mild calcium score of 24consider ct angio of cardiac arteries, but that is high radiation exposure. referral to qmxoltsfaiG33.10 Atherosclerotic heart disease of [place] coronary artery without angina pectorisNew Medication:Aspirin Childrens 81 mg - 1 by mouth every day with foodRosuvastatin Calcium 5 mg - 1 by mouth every dayNew Labs:Lipid, Scheduled: 05/09/19Comprehensive Met Panel-[facility], Scheduled: CPK, Scheduled: 05/09/19Comments:Coronary artery disease. Patient with an abnormal calcium ct score of 24 which suggests mild atherosclerotic plaque risk. The finding is in the Left main artery and the right coronary artery on the ctscan. Recommendations; treat for coronary artery disease. she has good exercise tolerance, has done a reassuring stress echostart aspirin 81mg chewable , daily with food start statins, rosuvastatin 5mg daily , treat to LDL for 50% reduction. cautioned risks for muscle aches and liver enzyme elevations,call for concerns. recheck labs and ov in 6 weeks to fu Discussed that betablocker and ACEI/ARB arerecommended as well, hold for now, one med at a time. Discussed option of referral to farm butcher for additional opinion, she wants to see a farm butcher, asks for Dr Vicki Jamison Encouraged continued healthy diet modified in fat and cholesterol with regular daily exercise. Call for symptoms of chest pressure, pain tightness, at rest or with exertion, or increasing SOB/ developing poor exercise intolerance. Call for concerns. HO sent to portalReferral:Vicki Jamison,E04.9 Nontoxic goiter, unspecifiedComments:no goiter or nodules foundthyroid labs mymkqeB60.2 Mixed hyperlipidemiaNew Medication:Aspirin Childrens 81 mg - 1 by mouth every day with foodRosuvastatin Calcium 5 mg - 1 by mouth every dayNew Labs:Lipid, Scheduled: Comprehensive Met Panel-[facility]G, Scheduled: 05/09/19CPK, Scheduled: Comments:higher cholct calcium score 24, CADwith family history start rosuvastatin 5mg dailycautioned risks for muscle aches and liver effects, callrecheck labs and ov in 6 weeksgoal LDL reduction of 50% at mbitpO42.9 Anxiety disorder, unspecifiedComments:anxiety there is a lot going on cardiology consult to help provide oversightreaddress at uvwjfbkeT15.25 Body mass index (BMI) 25.0-25.9, adultComments:Recommend healthy reduced calorie diet and regular exercise. Functional Status Description No Information Available Mental Status Description No Information Available Referrals Refer to Reason for Referral Status Appt Date Vicki Jamison 53 yo with unexplained tachycardia, and chest Created 00/00/ 0000 pressure. EKG showed biatrial enlargement. Echo shows normal atria, mild prox septal hypertrophy 1.5 cm, grade 1 diastolic dysfunction but stress echo was normal. tachycardia has resolved by stopping supplements. Ct coronary calcium score 24, for LM and RCA, with significant family histoyr, starting rosuvastatin 5mg daily and aspirin 81mg. Patient would like to see farm butcher for additional oversight and opinion. I have not started betablocker or acei/arb yet , pt is sensitive and doing only med at a time. Morning appt or afternoon 2pm to 4pm [facility] [address] [place] [address] [phone]
--- OUTSIDE RECORDS SUMMARY | 2019-05-31 17:24 | XMS REPORT | Summary of Care ---
:1965 Author Organization [facility] Address [address] [place] [address] Care Team Providers Name Role Phone Vicki Lopez MD Primary Care Provider Reason for Referral Diagnostic Radiology (Routine) Status Reason Specialty Diagnoses / Referred By Referred To Procedures Contact Contact Authorized Radiology Diagnoses Encounter for screening mammogram for malignant neoplasm of breast Hien Jones Procedures Mammo Digital Screen Bilateral MD Benjamin [address] [facility] [address] [place] [address] Reason for Visit Diagnostic Radiology (Routine) Status Reason Specialty Diagnoses / Referred By Referred To Procedures Contact Contact Authorized Radiology Diagnoses Encounter for screening mammogram for malignant neoplasm of breast Hien Jones Procedures Mammo Digital Screen Bilateral MD [facility] [address] [place] [address] Encounter Details Date Type Department Care Team Description 04/09/2019 Hospital Encounter Josephbrent Karen, Encounter for [facility] Hien Alexander MD screening mammogram [address] [facility] for malignant POB [facility], [address] [place] [address] Allergies Not on Filedocumented as of this encounter (statuses as of 04/10/2019) Medications Not on filedocumented as of this encounter (statuses as of 04/10/2019) Active Problems Not on filedocumented as of this encounter (statuses as of 04/10/2019) Social History Tobacco Use Types Packs/Day Years Used Date Never Assessed Sex Assigned at Date Recorded Not on file Job Start Date Occupation Industry Not on file Not on file Not on file Travel History Travel Start Travel End No recent travel history available. documented as of this encounter Last Filed Vital Signs Not on filedocumented in this encounter Plan of Treatment Name Type Priority Associated Diagnoses Date/Time Mammo Digital Screen Imaging Routine Encounter for screening 04/09/2019 8: 20 AM Bilateral mammogram for malignant EST neoplasm of breast Name Type Priority Associated Diagnoses Order Schedule Mammo Digital Screen Imaging Routine Encounter for screening As Needed for 1 Bilateral mammogram for malignant Occurrences starting neoplasm of breast 04/09/2019 until 04/09/2019 documented as of this encounter Results Not on filedocumented in this encounter Visit Diagnoses Diagnosis Encounter for screening mammogram for malignant neoplasm of breast Other screening mammogram documented in this encounter
--- OUTSIDE RECORDS SUMMARY | 2019-05-31 17:24 | XMS REPORT | Continuity of Care Document ---
:1965 External Reference #:[id number] Author Name Vicki Lopez MD Address [address] [place] [id number] Care Team Providers Name Role Phone Juancho Sykes MD - Gastroenterology Care Team Information Hand Cloth Cutter León Ribeiro MD - Gastroenterology Care Team Information Hand Cloth Cutter Vicki Jamison - Specialist Care Team Information Hand Cloth Cutter [phone] Problems Active Problems Provider Date Paroxysmal supraventricular [...] I25.10 Rosuvastatin Calcium 1 by mouth every 90tabs E78.2 Vicki Lopez MD 5mg day Tablets I25.10 Nortriptyline HCL 3 po qhs M79.7 Nghia Villa MD 12/05/2010 50mg Capsules Zolpidem Tartrate 1/2 po qhs M79.7 Nghia Villa MD 5mg Tablets Immunizations CPT Code Status Date Vaccine Reaction Lot # [id number] Given 03/20/2019 Flu Vaccine NOS 66052 Given 01/24/2016 Influenza Virus Vaccine,Quadrivalent,Split,Preserv Free, 0.5mL,[place] [address] Given 02/02/2011 Afluria Or Fluvirin Flu Vac Intramuscular 50240 Given 02/21/2005 Afluria Or Fluvirin Flu Vac Intramuscular 63054 Given 04/23/1992 Tetanus And Diptheria Toxoid 7 Years And Older Preserv Free 94393 Refused 04/02/2019 Shingrix (Shingles) Zoster Vaccine aware can get at harmacy HZV, Recombinant, Subunit, Adj 56976 Refused 02/27/2019 Tdap (Adacel) Ages 7 And Above Only 81827 Refused 02/27/2019 Fluzone Highdose Age 65 And Over aware can get at Preservative [facility] Antibiotic Free pharmacy` 40429 Refused 07/21/2016 Pneumococcal 23 Immunization Adult Or Immunosuppressed Patient 29701 Refused 07/21/2016 Tdap (Adacel) Ages 7 And Above Only Vital Signs Date Vital Result Comment 05/14/2019 8:19am Weight 149.00 lb Heart Rate 80 /min BP Systolic 130 mmHg BP Diastolic 70 mmHg Respiratory Rate 18 /min Height 64.5 inches 5'4.50" BMI (Body Mass Index) 25.2 kg/m2 04/02/2019 9:19am Weight 152.00 lb Heart Rate 80 /min BP Systolic 138 mmHg BP Diastolic 72 mmHg Respiratory Rate 18 /min Height 64.5 inches 5'4.50" BMI (Body Mass Index) 25.7 kg/m2 Results Test Acquired Date Facility Test Result H/L Range Note Lipid 05/09/2019 [facility] Cholesterol 136 mg/dL 50-199 1 Triglycerides 171 mg/dL 30-200 HDL 54 mg/dL 35-85 2 Chol/ HDL Ratio 2.5 ratio Low 3.7-5.6 VLDL 34 mg/dL High 2-29 LDL (Calc) 48 mg/dL 20-99 3 Comprehensive Met Panel-[facility]G 05/09/2019 [facility] Sodium 139 mmol/L 135- 146 4 Potassium 4.1 mmol/L 3.5-5.2 Chloride# 101 mmol/L 97-110 5 Carbon Dioxide 34 mmol/L 24-34 Calcium 9.2 mg/dL 8.5-10.5 6 Glucose 85 mg/dL 70-105 BUN 19 mg/dL 6-26 Creatinine 0.8 mg/dL 0.5-1.4 Total Protein 6.7 g/dL 6.0-8.0 Albumin 4.8 g/dL 3.6-4.9 Globulin 1.9 g/dL Low 2.0-3.5 A/G Ratio 2.5 Ratio High 1.0-2.2 Total Bilirubin 0.3 mg/dL 0.1-1.3 Alkaline Phosphatase 69 U/L 24-140 Alt 27 U/L 3-42 Ast 21 U/L 8-42 Anion Gap 4 mmol/L Low 5-15 7 Female Egfr 88 >60 8 Male Egfr 103 >60 9 Laboratory test finding 05/09/2019 [facility] CPK 129 U/L 12-199 Laboratory test finding 02/27/2019 [facility] TSH 0.91 uIU/mL 0.35-4.94 10 Free T4 0.93 ng/dL 0.70-1.48 CBC with Auto Diff-fcmg 02/27/2019 [facility] WBC 5.2 K/uL 4.1-11.0 RBC 4.64 M/uL [...] 0.1 K/uL 0.0-0.3 Comprehensive Met Panel-FCMG 02/27/2019 [facility] Sodium 139 mmol/L 135- 146 11 Potassium 4.6 mmol/L 3.5-5.2 Chloride# 102 mmol/L 97-110 12 Carbon Dioxide 29 mmol/L 24-34 Calcium 9.6 mg/dL 8.5-10.5 13 Glucose 90 mg/dL 70-105 BUN 24 mg/dL 6-26 Creatinine 0.9 mg/dL 0.5-1.4 Total Protein 7.1 g/dL 6.0-8.0 Albumin 4.7 g/dL 3.6-4.9 Globulin 2.4 g/dL 2.0-3.5 A/G Ratio 2.0 Ratio 1.0-2.2 Total Bilirubin 0.3 mg/dL 0.1-1.3 Alkaline Phosphatase 74 U/L 24-140 Alt 19 U/L 3-42 Ast 21 U/L 8-42 Anion Gap 8 mmol/L 5-15 14 Female Egfr 78 >60 15 Male Egfr 99 >60 16 Lipid 02/27/2019 [facility] Cholesterol 225 mg/dL High 50-199 Triglycerides 191 mg/dL 30-200 HDL 63 mg/dL 35-85 17 Chol/ HDL Ratio 3.6 ratio Low 3.7-5.6 VLDL 38 mg/dL High 2-29 LDL (Calc) 124 mg/dL High 20-99 18 Laboratory test 02/27/2019 [facility] Hepatitis C NON REACTIVE Non Reactive 19 finding Virus Antibody S/CORatio(Michael 1 before visit 04/2019 2 Per NCEP ATP III Guidelines: Results lower than 40 mg/dL are suggestive of increased risk for coronary artery disease. Results > or = to 60 mg/dL are considered a negative risk factor. 3 Per NCEP ATP III Guidelines: Normal Population <130 Patients with medical conditions: CHD/DM Optimal: <100 Borderline high: 130-159 High: 160-189 Very high: >189 4 Updated reference range on new analyzer 5 Updated reference range on new analyzer 6 Updated reference range 08-21-2018 7 Updated Reference Range 8 Concerning GFR Guidelines for Americans: Normal function or mild renal disease, if clinically at risk: >/= 60 mL/min Moderately decreased: 30-59 Severely decreased: 15-29 Renal failure: <15 There is reduced accuracy above 60ml/min/1.73 m squared, but the numeric value may be clinically useful in the near 60 range 9 Concerning GFR Guidelines: Normal function or mild [...] drugs that are excreted by the kidneys. 10 and peanut butter today letter, last food at 730, shake of protein isogenics with banana 11 Updated reference range on new analyzer 12 Updated reference range on new analyzer 13 Updated reference range 08-21-2018 14 Updated Reference Range 15 Concerning GFR Guidelines for Americans: Normal function or mild renal disease, if clinically at risk: >/= 60 mL/min Moderately decreased: 30-59 Severely decreased: 15-29 Renal failure: <15 There is reduced accuracy above 60ml/min/1.73 m squared, but the numeric value may be clinically useful in the near 60 range 16 Concerning GFR Guidelines: Normal function or mild [...] drugs that are excreted by the kidneys. 17 Per NCEP ATP III Guidelines: Results lower than 40 mg/dL are suggestive of increased risk for coronary artery disease. Results > or = to 60 mg/dL are considered a negative risk factor. 18 Per NCEP ATP III Guidelines: Normal Population <130 Patients with medical conditions: CHD/DM Optimal: <100 Borderline high: 130-159 High: 160-189 Very high: >189 19 S/CO Ratio >/=1.0 is REACTIVE. S/CO <5.0 is Low Reactive. S/CO >/= 5.0 is High Reactive. Effective Dec 15, 2016 all anti-HCV reactive samples are sent for quantitative PCR confirmation. Procedures Date Code Description Status 05/14/2019 06517 Brief Emotional/Behav Assessment W/ Scoring Doc Per Completed Standard Inst 04/02/2019 42788 Brief Emotional/Behav Assessment W/ Scoring Doc Per Completed Standard Inst 02/27/2019 27706 Electrocardiogram Complete Completed 04/03/2018 24619542 Mammogram Completed 12/05/2016 51670661 Colonoscopy Completed Medical Devices Description No Information Available Encounters Type Date Location Provider Dx Diagnosis Office Visit 04/02/2019 Vicki Kaufman, R00.0 Tachycardia, 9:15a MD unspecified I51.7 Cardiomegaly I42.9 Cardiomyopathy, unspecified R07.9 Chest pain, unspecified I25.10 Athscl heart disease of [place] coronary artery w/o ang pctrs E04.9 Nontoxic goiter, unspecified E78.2 Mixed hyperlipidemia F41.9 Anxiety disorder, unspecified Z68.25 Body mass index (BMI) 25.0-25.9, adult Office Visit 02/27/2019 9:00a [facility] Vicki Lopez MD R00.0 Tachycardia, unspecified I51.7 Cardiomegaly R07.9 Chest pain, unspecified [...] 25.0-25.9, adult Assessments Date Code Description Provider 05/14/2019 I25.10 Atherosclerotic heart disease of [place] Vicki Lopez MD coronary artery without angina pectoris 05/14/2019 E78.2 Mixed hyperlipidemia Vicki Lpoez MD 05/14/2019 R00.0 Tachycardia, unspecified Vicki Lopez MD 05/14/2019 F41.9 Anxiety disorder, unspecified Vicki Lopez MD 05/14/2019 I42.9 Cardiomyopathy, unspecified Vicki Lopez MD 05/14/2019 M79.7 Fibromyalgia Vicki Lopez MD 05/14/2019 G47.9 Sleep disorder, unspecified Vicki Lopez MD 05/14/2019 R06.83 Snoring Vicki Lopez MD 05/14/2019 Z68.25 Body mass index (BMI) 25.0-25.9, adult Vicki Lopez MD 05/09/2019 I25.10 Athscl heart disease of [place] coronary artery Schedule, Laboratory w/o ang pctrs 05/09/2019 E78.2 Mixed hyperlipidemia Schedule, Laboratory 05/09/2019 I25.10 Athscl heart disease of [place] coronary artery [facility] w/o ang pctrs 05/09/2019 E78.2 Mixed hyperlipidemia [facility] 04/02/2019 R00.0 Tachycardia, unspecified Vicki Lopez MD 04/02/2019 I51.7 Cardiomegaly Vicki oLpez MD 04/02/2019 I42.9 Cardiomyopathy, unspecified Vicki Lopez MD 04/02/2019 R07.9 Chest pain, unspecified Vicki Lopez MD 04/02/2019 I25.10 Atherosclerotic heart disease of [place] Vicki Lopez MD coronary artery without angina pectoris 04/02/2019 E04.9 Nontoxic goiter, unspecified Vicki Lopez MD 04/02/2019 E78.2 Mixed hyperlipidemia Vicki Lopez MD 04/02/2019 F41.9 Anxiety disorder, unspecified Vicki Lopez MD 04/02/2019 Z68.25 Body mass index (BMI) 25.0-25.9, adult Vicki Lopez MD 02/27/2019 R00.0 Tachycardia, unspecified Vicki Lopez MD 02/27/2019 R00.0 Tachycardia, jonathanified Vicki Lopez MD 02/27/2019 Z82.49 Family history [...] mode of transmission 02/27/2019 E04.9 Nontoxic goiter, unspecified Vicki Lopez MD 02/27/2019 Z12.31 Encounter for [...] mode of transmission 02/27/2019 R00.0 Tachycardia, unspecified [facility] 02/27/2019 Z82.49 Family hx of ischem heart dis and oth dis of [facility] the circ sys 02/27/2019 Z20.2 Contact w and exposure to infect w a sexl mode [facility] of transmiss Plan of Treatment Future Appointment(s):11/05/2019 10:00 am - Schedule, Laboratory at [facility]2019 9:15 am - Vicki Lopez MD at [facility]05/14/2019 - Vicki Lopez MDI25.10 Atherosclerotic heart disease of [place] coronary artery without angina pectorisNew Labs:Lipid, Ordered: 05/14/19Comprehensive Met Panel-FCMG, Ordered: 05/14/19[facility], Ordered: 05/14/19CBC with Auto Diff-fcmg, Ordered: 05/14/19Comments :Coronary artery disease. Patient with an abnormal calcium ct score of 24 which suggests mild atherosclerotic plaque risk. The finding is in the Left main artery and the right coronary artery on the ctscan. Recommendations; continue to treat for coronary artery disease. she has good exercise tolerance, has done a reassuring stress echo fall 2018continue aspirin 81mg chewable, daily with food continue rosuvastatin 5mg daily , treat to LDL for 50%, she is at goal reduction. cautioned risks for muscle aches and liver enzyme elevations, call for concerns. She sees Dr Vicki Jamison tomorrow Encouraged continued healthy diet modified in fat and cholesterol with regular daily exercise. Call for symptoms of chest pressure, pain tightness, at rest or with exertion, or increasing SOB/developing poor exercise intolerance. Call for concerns.Follow up:next visit in 6 mo for oc15 rtn fu and CARLY nonfasting labs 5 days lgwbaB66.2 Mixed hyperlipidemiaNew Labs:Lipid, Ordered: 05/14/19Comprehensive Met Panel-FCMG, Ordered: 05/14/19CPK, Ordered: 05/14/19Comments:higher cholct calcium score 24, CADwith family history On rosuvastatin 5mg daily LDL reduced from 90to 120s down to 48. Continue meds cautioned risks for muscle aches and liver effects, call for concerns. For lifestyle, we also recommend: Low fat ( under 30gm per day), low chol diet ( under 300mg per day chol)focus on lean meat , nonfat 1% dairy, increased veg and fruit, whole grains weight target normal exercise build to at least 30min per day--150min per week, 10,000 steps per day. Reviewed signsand symptoms of cardiovascular events.R00.0 Tachycardia, unspecifiedComments:improved on arrival, with exam hr is back up but also discussing important issues , likely anxiety component avoid wxspqimuhlrK56.9 Anxiety disorder, unspecifiedComments:anxiety CARLY = 9, after review and discussion of survey questions, joannearnaud is a lot going on cardiology consult to help provide oversight re cardiac issues She has done counselling in the past. Discussed use/recommend Cognitive and behavioral therapy to help with sleep issues --check [facility] in [place]. Work on sleep hygiene, consider sleep hygiene. Discussed meds to help, she prefers not. Cautioned risks for zolpidem for addiction, other potential terminal make up operator effects. .I42.9 Cardiomyopathy, unspecifiedComments:discussed cardiomyopathydiscussed mild 1.5 cm prox septal hypertrophy with grade 1 diastolic dysfunctionnormal function with stress testing, reassuring. recheck echo in 1 year referral to bjviomgvvbY72.7 FibromyalgiaComments:[facility] with Dr VillaG47.9 Sleep disorder, unspecifiedComments:Sleep habitsmost people need 7-8 hours, recommend targeting 7 hours.Stick with a routine, to bed at same time, up at same time. No naps.Work to earn your sleep, with daily regular exercise.Avoid doing things other than sleeping in bed.Limit caffeine to 2 per day, all before noon.Limit alcohol, it may help you fall asleep, but it tends to cause people to be more wakeful in the morning or have trouble over night. Avoid bright screen for 1-2 hours before bed. Consider a weighted hbfsyfaF42.83 SnoringComments:pt with loud breathing and snoringreports NOdaytime somnolence , feels refreshed in the morningrecommend monitoring, be mindful the meds you are taking may contribute, the nortip and zolp. call if upbfhmtQ70.25 Body mass index (BMI) 25.0-25.9, adultComments:Recommend healthy reduced calorie diet and regular exercise. Functional Status Description No Information Available Mental Status Description No Information Available Referrals Refer to Reason for Referral Status Appt Date Vicki Jamison 53 yo with unexplained tachycardia, and chest Scheduled 2019 pressure. EKG showed biatrial enlargement. Echo shows normal atria, mild prox septal hypertrophy 1.5 cm, grade 1 diastolic dysfunction but stress echo was normal. tachycardia has resolved by stopping supplements. Ct coronary calcium score 24, for LM and RCA, with significant family histoyr, starting rosuvastatin 5mg daily and aspirin 81mg. Patient would like to see jack frame tender for additional oversight and opinion. I have not started betablocker or acei/arb yet , pt is sensitive and doing only med at a time. Morning appt or afternoon 2pm to 4pm Patient is aware of appt date and time will mail out also 04/08/19 [facility] [address] [place] [place] [address] [phone]
--- OUTSIDE RECORDS SUMMARY | 2019-05-31 17:24 | XMS REPORT | Continuity of Care Document ---
:1965 External Reference #:[id number] Author Name Hien Jones M.D. Address [address] [place] [id number] Care Team Providers Name Role Phone Vicki Lopez DR. - Family Care Team Information Assessment Consultant [phone] Medicine Gasper Souza M.D. - Care Team Information Assessment Consultant [phone] Gynecology Problems Description No Active Problems Social History Type Date Description Comments Sex Unknown Tobacco Use Start: Unknown Never Smoked Cigarettes Allergies, Adverse Reactions, Alerts Active Allergies Reaction Severity Comments Date Penicillin 01/24/2011 Keflex Urticaria 01/29/2014 Amlodipine Urticaria 01/29/2014 Medications Active Medications SIG Qnty Indications Ordering Date Provider Zovirax apply externally 1units Hien 01/29/2014 5% Ointment to affected area 6 Silvio Jones times a day as needed Ambien 1 po qhs prn 15tabs Unknown 5mg Tablets Ibuprofen 1 tab po every 6 90tabs Unknown 600mg Tablets hours as needed for pain Nortriptyline HCL Unknown 50mg Capsules Immunizations Description No Information Available Vital Signs Date Vital Result Comment 04/09/2019 8:58am BP Systolic 102 mmHg BP Diastolic 70 mmHg Height 64 inches 5'4" Weight 152.00 lb BMI (Body Mass Index) 26.1 kg/m2 04/03/2018 9:15am BP Systolic 110 mmHg BP Diastolic 78 mmHg Height 64 inches 5'4" Weight 145.00 lb BMI (Body Mass Index) 24.9 kg/m2 Results Description No Information Available Procedures Description No Information Available Medical Devices Description No Information Available Encounters Type Date Location Provider Dx Diagnosis Office Visit 04/09/2019 Main Office Hien Jones, Z01.419 Encntr for land survey technician exam 9:10a M.DBeth (general) (routine) w/o abn findings Z12.12 Encounter for screening for malignant neoplasm of rectum Assessments Date Code Description Provider 04/09/2019 Z01.419 Encounter for gynecological examination Hien Jones M.D. (general) (routine) without abnormal findings 04/09/2019 Z12.12 Encounter for screening for malignant Hien Jones M.D. neoplasm of rectum Plan of Treatment Future Appointment(s):04/29/2020 8:40 am - Hien Jones M.D. at Main K[facility]g3104/09/2019 - Hien Jones M.D.Z01.419 Encounter for gynecological examination (general) (routine) without abnormal yejwvjmoY49.12 Encounter for screening for malignant neoplasm of rectum Functional Status Description No Information Available Mental Status Description No Information Available Referrals Description No Information Available
[2019-05-31 17:53] VITALS: BP 128/84
--- NOTE | 2019-05-31 18:21 | UC ---
Laceration HPI - HPI Summary HPI Summary: skin avulsion lateral aspect distal right forth finger due to a mandolin---6 mm x 2mm piece of skin missing from wound oozing blood - History Of Current Complaint Chief Complaint: UCLaceration Stated Complaint: FINGER CUT Time Seen by Provider: 05/31/19 18:14 Hx Obtained From: Patient Hx Last Menstrual Period: january Laceration Location: Finger - right 4th Mechanism Of Injury: Sharp Trauma Onset/Duration: Sudden Onset, Lasting Hours Pain Intensity: 1 Pain Scale Used: 0-10 Numeric - Allergies/Home Medications Allergies/Adverse Reactions: Allergies Allergy/AdvReac Type Severity Reaction Status Date / Time amlodipine Allergy Intermediate Hives Verified 05/31/19 17:56 cephalexin [From Keflex] Allergy Intermediate Hives Verified 05/31/19 17:56 Penicillins Allergy Intermediate Hives Verified 05/31/19 17:56 nitrofurantoin AdvReac body Verified 05/31/19 17:56 [From Macrobid] aches, ended up in the hospital Home Medications: Home Medications Nortriptyline CAP* [Pamelor CAP*] 30 mg PO BEDTIME 05/31/19 [History Confirmed 05/31/19] Rosuvastatin Calcium [Crestor] 5 mg PO DAILY 05/31/19 [History Confirmed ] Zolpidem TAB* [Ambien TAB*] 2.5 mg PO BEDTIME PRN 05/31/19 [History Confirmed ] PMH/Surg Hx/FS Hx/Imm Hx Previously Healthy: No Endocrine History: Dyslipidemia Neurological History: Migraine - Surgical History Surgical History: Yes Surgery Procedure, Year, and Place: Tubal Ligation. Ankle. - Family History Known Family History: Positive: None - Social History Occupation: Employed Full-time Lives: With Family Alcohol Use: Occasionally Substance Use Type: None Smoking Status (MU): Never Smoked Tobacco - Immunization History Most Recent Tetanus Shot: unknown Review of Systems All Other Systems Reviewed And Are Negative: Yes Constitutional: Positive: Negative Skin: Positive: Other - 6x2 mm skins avulsion lateral right 4th finger near nail Eyes: Positive: Negative ENT: Positive: Negative Respiratory: Positive: Negative Cardiovascular: Positive: Negative Gastrointestinal: Positive: Negative Genitourinary: Positive: Negative Motor: Positive: Negative Neurovascular: Positive: Negative Musculoskeletal: Positive: Negative Neurological: Positive: Negative Psychological: Positive: Negative Is Patient Immunocompromised?: No Physical Exam Triage Information Reviewed: Yes Appearance: Well-Appearing, No Pain Distress, Well-Nourished Vital Signs: Initial Vital Signs Temp 98.2 F 05/31/19 17:49 Pulse 98 05/31/19 17:49 Resp 16 05/31/19 17:49 BP 128/84 05/31/19 17:49 Pulse Ox 100 05/31/19 17:49 Vital Signs Reviewed: Yes Eye Exam: Normal Eyes: Positive: Conjunctiva Clear ENT Exam: Normal ENT: Positive: Normal ENT inspection, Hearing grossly normal. Negative: Trismus , Muffled voice, Hoarse voice Dental Exam: Normal Neck exam: Normal Neck: Positive: Supple, Nontender, No Lymphadenopathy Respiratory Exam: Normal Respiratory: Positive: No respiratory distress, No accessory muscle use Cardiovascular Exam: Normal Cardiovascular: Positive: RRR, Pulses Normal, Brisk Capillary Refill Musculoskeletal Exam: Normal Musculoskeletal: Positive: Strength Intact, ROM Intact, No Edema Neurological Exam: Normal Neurological: Positive: Alert, Muscle Tone Normal Psychological Exam: Normal Skin: Positive: Other - skin avulsion as described Laceration Repair - Laceration Repair 1 Description: Linear Laceration Size After Repair: Length (cm) - 0.6, Width (mm) - 2, Depth (mm) - 2 Cleansing Completed Via Routine Prep: Yes Irrigation With Pressure Irrigation Device: Yes Suture Type: Other - gel form and dressing with tube gauze Re-Evaluation - Re-Evaluation First Eval Change: Unchanged - needed reinforcement prior to discharge by rn Laceration Course/Dx - Course/Dx Course Of Treatment: leave gel form in pllace allow to fall off as scab falls off--keep dressing on for at least 24 hours - Diagnosis Provider Diagnosis: Avulsion of skin of finger Discharge ED - Sign-Out/Discharge Documenting (check all that apply): Patient Departure All imaging exams completed and their final reports reviewed: No Studies - Discharge Plan Condition: Stable Disposition: HOME Patient Education Materials: Diphtheria/Pertussis/Tetanus Vaccine (By injection ), Skin Avulsion (ED) Referrals: Vicki Lopez MD [Primary Care Provider] - If Needed - Billing Disposition and Condition Condition: STABLE Disposition: Home
[2019-05-31] MEDS ORDERED: Tetan/Diph/Pertus SYR(Tdap)* 0.5 ML SYR(BOOSTRIX) use SYR contains LATEX IM ONE (18:27)
[2019-05-31] MEDS ORDERED: Gelfoam 12-7 ADSORBABL SPONGE* 1 EA SPONGE TOPICAL ONE (18:32)
== END 2019-05-31 19:19 | disposition home or self-care (01) ==
LOC: UCEAST 17:17
DX: S61.204A Unspecified open wound of right ring finger without damage to nail, initial encounter (principal); E78.5 Hyperlipidemia, unspecified; Z88.0 Allergy status to penicillin; Z88.1 Allergy status to other antibiotic agents; Z88.8 Allergy status to other drugs, medicaments and biological substances; Z23 Encounter for immunization; Z79.899 Other long term (current) drug therapy; W26.8XXA Contact with other sharp object(s), not elsewhere classified, initial encounter; Y92.9 Unspecified place or not applicable
CPT/HCPCS: 90471; 90715; 99212; A9270-GY; G0463